=== PATIENT | male | born 1985 | race Caucasian/White ===

== ENCOUNTER 2020-06-07 11:08 | Emergency (ER) | payer OTHER ==
[~2020-06-07] VITALS: Ht 177.8 cm; Wt 88.0 kg
--- NOTE | 2020-06-07 11:39 | NUR ---
Patient eyes close arousable patient is homeless per report vital taken and file with in normal limits continue to monitor
[2020-06-07] MEDS ORDERED: ONDANSETRON HCL/PF 4 MG/2 ML VIAL ONE (13:45)
--- NOTE | 2020-06-07 13:49 | NUR ---
Patient eyes open answer yes and no and fall back to sleep noted x 1 Vomit MD aware with order .
[2020-06-07] MEDS ORDERED: ONDANSETRON 4 MG TAB.RAPDIS ONE (13:57)
[2020-06-07] MEDS ORDERED: ONDANSETRON 4 MG TAB.RAPDIS SL ONE (14:00)
[2020-06-07 14:08] VITALS: BP 129/63
[2020-06-07] MEDS ORDERED: METOCLOPRAMIDE HCL 10 MG/2 ML VIAL ONE (15:34)
--- NOTE | 2020-06-07 15:40 | NUR ---
Patient states remain nauseated Md aware with order .
[2020-06-07] MEDS ORDERED: METOCLOPRAMIDE HCL 10 MG/2 ML VIAL IV ONE (16:00)
--- NOTE | 2020-06-07 16:30 | NUR ---
Patient awake alert noted ate his snack 60 % no vomit @ this time .
--- NOTE | 2020-06-07 16:59 | NUR ---
Patient is requesting Dr. mora @ bedside .
--- NOTE | 2020-06-07 17:11 | NUR ---
Patient awake alert noted able to ambulated to he dress up himself and stand and walk to rest room non distress noted no further vomiting ,removed saline lock LAC cath intact no edema no pain patient refused to sign the dc information he took the copy of Dc instruction ,refused sign of penitentiary declined and referral .
== END 2020-06-07 17:19 | disposition home or self-care (01) ==
LOC: EDBD 11:15 → ER 11:15
DX: T40.2X1A Poisoning by other opioids, accidental (unintentional), initial encounter (principal); F10.10 Alcohol abuse, uncomplicated; Y90.9 Presence of alcohol in blood, level not specified; Z59.0 Homelessness; Y92.89 Other specified places as the place of occurrence of the external cause
CPT/HCPCS: 96374; 99283; J2765; Q0162; J2405

== ENCOUNTER 2021-01-16 02:35 | Emergency (ER) | payer OTHER ==
--- NOTE | 2021-01-16 03:00 | NUR ---
PATIENT LEFT PRIOR TO TRIAGE
== END 2021-01-16 03:18 | disposition left against medical advice (07) ==
LOC: ER 02:39
DX: Z53.21 Procedure and treatment not carried out due to patient leaving prior to being seen by health care provider (principal)

== ENCOUNTER 2021-12-10 05:35 | Emergency (ER) | payer OTHER ==
[~2021-12-10] VITALS: Ht 177.8 cm; Wt 29.0 kg
--- NOTE | 2021-12-10 05:44 | NUR ---
PT AOX4. BIBRA 88 C/O OD. PT VOMITTED ONCE PER RA. PLACED IN BED 13 ON MONITOR AND PULSE OX. PT PALCED ON 4L NC DUE TO HIM SAT 85%.
--- NOTE | 2021-12-10 05:58 | NUR ---
OFFER PT URINAL; AWAITING FOR URINE SAMPLE.
--- NOTE | 2021-12-10 06:08 | NUR ---
CUSTOMER SALES SERVICE MANAGER AT PT'S BEDSIDE
[2021-12-10 06:15] LABS: BASOPHILS % (AUTO) 0.3 % (0.0-2.0); EOSINOPHILS % (AUTO) 0.4 % (0.0-6.0); HEMATOCRIT 37 % (39-51); HEMOGLOBIN 12.5 g/dL (13.5-17.5); LYMPHOCYTES # (AUTO) 1.1 K/uL (0.8-4.8); LYMPHOCYTES % (AUTO) 7.8 % (20.0-44.0); MEAN CORPUSCULAR HGB CONC 33 g/dl (31.0-36.0); MEAN CORPUSCULAR VOLUME 89 fL (80-96); MONOCYTES # (AUTO) 0.8 K/uL (0.1-1.30); MONOCYTES % (AUTO) 5.3 % (2.0-12.0); NEUTROPHILS # (AUTO) 12.5 K/uL (1.8-8.9); NEUTROPHILS % (AUTO) 86.2 % (43.0-81.0); PLATELET COUNT (AUTO) 300 K/uL (150-450); RED BLOOD CELL COUNT(AUTO) 4.23 MIL/uL (4.5-6.0); WHITE BLOOD COUNT (AUTO) 14.5 K/uL (4.3-11.0)
[2021-12-10 06:33] LABS: ALANINE AMINOTRANSFERASE 29 U/L (12-78); ALBUMIN 2.8 g/dL (3.4-5.0); ALCOHOL, BLOOD < 3 mg/dL (0-0); ALKALINE PHOSPHATASE 104 U/L (46-116); ASPARTATE AMINOTRANSFERASE 37 U/L (15-37); BILIRUBIN,DIRECT 0.1 mg/dL (0.0-0.2); BILIRUBIN,TOTAL 0.3 mg/dL (0.2-1.0); CALCIUM, SERUM 7.9 mg/dL (8.5-10.1); CARBON DIOXIDE 27 mmol/L (21-32); CHLORIDE 100 mmol/L (98-107); CREATININE 1.2 mg/dL (0.6-1.3); GLUCOSE 321 mg/dL (74-106); POTASSIUM 3.9 mmol/L (3.5-5.1); SODIUM SERUM 134 mmol/L (136-145); TOTAL PROTEIN, SERUM 7.2 g/dL (6.4-8.2); UREA NITROGEN, BLOOD 14 mg/dL (7-18)
--- NOTE | 2021-12-10 06:41 | NUR ---
URINE COLLECTED AND SENT TO LAB
[2021-12-10 07:39] LABS: BILIRUBIN,URINE NEGATIVE (NEGATIVE); COLOR,URINE YELLOW (YELLOW); LEUKOCYTE ESTERASE ,URINE NEGATIVE (NEGATIVE); NITRITE, URINE NEGATIVE (NEGATIVE); PROTEIN,URINE TRACE mg/dl (NEGATIVE); UGLUCOSE 250 MG/DL mg/dL (NEGATIVE); UROBILINOGEN,URINE 0.2 EU/dL (0.2)
--- NOTE | 2021-12-10 08:04 | NUR ---
PATIENT IN BED ASLEEP, EASILY AROUSABLE BY VOICE. HOOKED TO MONITOR, SINUS RHYTHM, ON 4LMP O2 VIA NC. WILL CONTINUE TO MONITOR.
[2021-12-10 08:49] LABS: BACTERIA,URINE Rare /HPF (None Seen); RBC,URINE 0-2 /HPF (0-2); SQUAMOUS EPITHELIAL CELL,UR Few /HPF (None Seen)
[2021-12-10 08:56] LABS: ACETAMINOPHEN < 10 ug/ml (10-30)
--- NOTE | 2021-12-10 10:27 | NUR ---
Psychodramatist consult requested for overdose. planner/scheduler attempted to complete social media campaign manager assessment with the pt. Pt. was vomiting and stated he could not answer questions at this time. planner/scheduler will attempt to complete the assessment when the pt. is interviewable. planner/scheduler will remain availabe as needed.
[2021-12-10] MEDS ORDERED: HALOPERIDOL LACTATE INJ 5 MG/ML VIAL IM ONE (11:00)
[2021-12-10] MEDS ORDERED: ONDANSETRON HCL/PF - ER 4 MG/2 ML VIAL IM ONE (11:00)
[2021-12-10] MEDS ORDERED: HALOPERIDOL LACTATE INJ 5 MG/ML VIAL ONE (11:03)
[2021-12-10] MEDS ORDERED: ONDANSETRON HCL/PF 4 MG/2 ML VIAL ONE (11:03)
--- NOTE | 2021-12-10 18:34 | NUR ---
DR CHANG AT BEDSIDE FOR RE-EVALUATION
[2021-12-10 19:16] VITALS: BP 119/72
--- NOTE | 2021-12-10 19:16 | NUR ---
Patient discharged to home in stable condition. Written and verbal after care instructions given. Patient verbalizes understanding of instruction.
== END 2021-12-10 19:19 | disposition home or self-care (01) ==
LOC: ER 05:43
DX: T43.621A Poisoning by amphetamines, accidental (unintentional), initial encounter (principal); R11.10 Vomiting, unspecified; Z59.00 Homelessness unspecified; Y92.89 Other specified places as the place of occurrence of the external cause
CPT/HCPCS: 99285; 96372 ×2; 85025; 80048; 80076; 81001; 36415; 80143; 80320; 80307; J1630; J2405 ×2; G0480